=== PATIENT | male | born 1960 | race Caucasian/White ===

== ENCOUNTER 2020-07-26 14:20 | Emergency (ER) | payer MEDICARE, SELFPAY ==
[2020-07-26 14:41] VITALS: BP 146/72; PULSE 79; RESP 16; TEMP 36.8; O2SAT 96; BMI 33.7
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
[2020-07-26] MEDS: Lidocaine HCl 2 % MPF 5 ML VIAL INFILTRATI ×2 (17:02)
--- NOTE | 2020-07-26 17:04 | PC.NURSE ---
TETANUS VACCINE ADMINISTERED IN TO RT DELTOID
== END 2020-07-26 18:17 | disposition home or self-care (01) ==
PROVIDERS: Emergency Provider Emergency Medicine
DX: S01.01XA Laceration without foreign body of scalp, initial encounter (principal); S09.90XA Unspecified injury of head, initial encounter; S40.012A Contusion of left shoulder, initial encounter; Y00.XXXA Assault by blunt object, initial encounter; Y93.9 Activity, unspecified; Y92.9 Unspecified place or not applicable; Y99.9 Unspecified external cause status
CPT/HCPCS: 12002; 70450; 72125; 73030; 90471; 90715; 99284

== ENCOUNTER 2020-08-05 11:11 | Emergency (ER) | payer MEDICARE, SELFPAY ==
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
[2020-08-05 11:26] VITALS: BP 142/85; PULSE 84; RESP 14; TEMP 36.6; O2SAT 99; BMI 31.6
== END 2020-08-05 11:56 | disposition home or self-care (01) ==
PROVIDERS: Emergency Provider Emergency Medicine
DX: Z48.02 Encounter for removal of sutures (principal); Z79.899 Other long term (current) drug therapy
CPT/HCPCS: 99283

== ENCOUNTER 2020-12-01 08:12 | Outpatient (REF) | payer MEDICARE, SELFPAY ==
--- NOTE | ~2020-12-01 | XR_ITS ---
EXAMINATION: XR LUMBOSACRAL SPINE CLINICAL INFORMATION: Lower back pain COMPARISON: None TECHNIQUE: Three views of the lumbosacral spine. FINDINGS: There is grade 1/2 anterolisthesis of L5 on S1. Alignment is otherwise maintained. Vertebral body heights are maintained. Mild disc space narrowing of L4-L5 and L5-S1. Small multilevel endplate osteophytes with multilevel facet arthropathy. The sacroiliac joints are symmetric. The visualized sacrum is intact. The bowel gas pattern is unremarkable. XR/XR lumbar spine 2-3V IMPRESSION: Mild to moderate degenerative changes of the lumbar spine. Grade 1/2 anterolisthesis of L5 on S1.
--- NOTE | ~2020-12-01 | XR_ITS ---
EXAMINATION: XR CHEST CLINICAL INFORMATION: Left shoulder pain COMPARISON: 01/14/2018 TECHNIQUE: 2 views of the chest were obtained. FINDINGS: Lung volumes are low. No consolidation, edema, or effusion. No pneumothorax. The cardiomediastinal silhouette is within normal limits. No osseous abnormality. XR/XR chest 2V IMPRESSION: Low lung volumes with no acute pulmonary finding.
[2020-12-01 09:41] LABS: MANUAL DIFF FLAG NO
[2020-12-01 09:59] LABS: Basophils Absolute Auto 0.1 X10*3/uL (0.0-0.2); Basophils Percent Auto 0.9 % (0-2); Eosinophils Absolute Auto 0.2 X10*3/uL (0.0-0.4); Eosinophils Percent Auto 3.4 % (0-4); Hematocrit 45.7 % (42-52); Hemoglobin 14.5 g/dl (14.0-18.0); Imm Gran Abs Auto 0.02 X10*3/uL (0.00-0.03); Imm Gran Pct Auto 0.3 % (0.0-0.4); Mean Corpuscular HGB Conc 31.7 g/dl (31.0-36.0); Mean Corpuscular Hemoglobin 29.8 pg (27.0-33.0); Mean Platelet Volume 9.3 fL (9.4-12.4); Monocytes Absolute Auto 0.5 X10*3/uL (0.1-1.2); Monocytes Percent Auto 8.2 % (2-11); Neutrophils Absolute Auto 3.5 X10*3/uL (2.0-8.3); Neutrophils Percent Auto 55.2 % (45-73); Platelet Count 278 X10*3/uL (160-400); Red Blood Count 4.86 X10*6/uL (4.60-5.80); Red Cell Distribution Width 13.2 % (11.0-16.0); White Blood Count 6.4 X10*3/uL (4.8-10.8)
[2020-12-01 10:11] LABS: Alanine Aminotransferase 32 U/L (0-40); Albumin Level 4.4 g/dL (3.5-5.0); Alkaline Phosphatase 62 U/L (39-117); Anion Gap 11 (12-20); Aspartate Amino Transferase 25 U/L (5-37); Bilirubin Total 0.4 mg/dL (0.0-1.0); Blood Urea Nitrogen 12 mg/dL (9-16); Calcium 9.1 mg/dL (8.4-10.2); Carbon Dioxide 30 mmol/L (22-29); Chloride 103 mmol/L (96-108); Cholesterol 199 mg/dL; Estimated Glomerular Filt Rate > 60; Glucose Random 91 mg/dL (60-115); HDL Cholesterol 48 mg/dL; LDL Cholesterol Calculated 126 mg/dl; Potassium 4.3 mmol/L (3.3-5.1); Sodium 140 mmol/L (135-145); Total Protein 7.4 g/dL (6.5-8.0); Triglycerides 126 mg/dL
[2020-12-01 10:26] LABS: Prostate Specific Antigen Scr 0.24 ng/mL (<0.05-4.0); Thyroid Stimulating Hormone 1.35 uIU/mL (0.32-4.0)
[2020-12-01 10:57] LABS: Folate 9.9 ng/mL (> or = 4.0); Vitamin B12 307 pg/mL (200-900)
== END 2020-12-01 08:13 | disposition home or self-care (01) ==
LOC: HO.LAB 08:12
PROVIDERS: PCP Internal Medicine; Visit Provider Internal Medicine
DX: M54.5 Low back pain (principal); G89.29 Other chronic pain; M25.512 Pain in left shoulder; E78.00 Pure hypercholesterolemia, unspecified; Y09 Assault by unspecified means
CPT/HCPCS: 36415; 71046; 72100; 80053; 80061; 82607; 82746; 84153; 84439; 84443; 85025

== ENCOUNTER → 2020-12-13 13:04 | Outpatient (BNVA) | payer MEDICARE, SELFPAY | PROVIDERS: PCP Internal Medicine; Visit Provider Physician Assistant | DX: M75.42 Impingement syndrome of left shoulder (principal) | CPT/HCPCS: 20605; 99202; J1040 ==

== ENCOUNTER 2021-01-31 09:00 | Outpatient (RCR) | payer MEDICARE, SELFPAY ==
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
--- NOTE | 2021-02-10 11:30 | MHC.PT.DC ---
[facility] [place] Office [place] Office [place] Office [address] Nayeli Kennedy [address] [phone] F: [phone] F: [phone] F: [phone] F: [phone] Physical Therapy Discharge Report Diagnosis: Impingement syndrome of L shoulder Date of Surgery: NA Date of Evaluation: 12/27/20 Date of Discharge: 02/10/21 Treatments to Date: 6 Cancellations to Date: 1 No Shows to Date: 5 Discharge Status: Improved Function Independent with HEP Discharge Summary: David completed 6 PT visits. During his course of PT he made improvements in shoulder ROM, strength and pain levels however still had the crunchy sound and would occasionally have shoulder stuck while moving it. David wanted to follow up with his doctor and have more imaging done before doing any more PT. He has therefore been discharged from PT. Electronically signed by: Liz Rodriguez PT DPT Please sign and return to therapist. Thank you for your referral.
--- NOTE | 2021-02-10 11:41 | MHC.PT.DC ---
[facility] [place] Office [place] Office [place] Office [address] Nayeli Kennedy [address] [phone] F: [phone] F: [phone] F: [phone] F: [phone] Physical Therapy Discharge Report Diagnosis: Impingement syndrome of L shoulder Date of Surgery: NA Date of Evaluation: 12/27/20 Date of Discharge: 02/10/21 Treatments to Date: 6 Cancellations to Date: 1 No Shows to Date: 5 Discharge Status: Improved Function Independent with HEP Discharge Summary: David completed 6 PT visits. During his course of PT he made improvements in shoulder ROM, strength and pain levels however still had the crunchy sound and would occasionally have shoulder stuck while moving it. David wanted to follow up with his doctor and have more imaging done before doing any more PT. He has therefore been discharged from PT. Electronically signed by: Liz Rodriguez PT DPT Please sign and return to therapist. Thank you for your referral.
== END 2021-02-10 11:31 | disposition other institution (70) ==
LOC: HO.PT 09:00
PROVIDERS: PCP Internal Medicine; Visit Provider Physician Assistant
DX: M75.42 Impingement syndrome of left shoulder (principal)
CPT/HCPCS: 97110; 97112; 97140; 97161

== ENCOUNTER → 2021-02-15 12:32 | Outpatient (BNVA) | payer MEDICARE, SELFPAY | PROVIDERS: PCP Internal Medicine; Referring Provider Internal Medicine; Visit Provider Physician Assistant | DX: D12.6 Benign neoplasm of colon, unspecified (principal); K21.9 Gastro-esophageal reflux disease without esophagitis; E78.00 Pure hypercholesterolemia, unspecified; M47.817 Spondylosis without myelopathy or radiculopathy, lumbosacral region; Z79.899 Other long term (current) drug therapy | CPT/HCPCS: 99202 ==

== ENCOUNTER 2021-03-06 08:22 | Outpatient (REF) | payer MEDICARE, SELFPAY ==
[2021-03-11 10:27] LABS: Testosterone, Total 286 ng/dL (250-1100)
== END 2021-03-06 08:23 | disposition home or self-care (01) ==
LOC: HO.LAB 08:22
PROVIDERS: PCP Internal Medicine; Visit Provider Internal Medicine
DX: N52.9 Male erectile dysfunction, unspecified (principal)
CPT/HCPCS: 36415; 84403

== ENCOUNTER 2021-05-16 09:43 | Day surgery (SDC) | payer MEDICARE, SELFPAY ==
[2021-05-11 10:15] VITALS: BMI 36.0
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
[2021-05-16 10:38] VITALS: BP 148/77; PULSE 70; RESP 20; TEMP 36.3; O2SAT 98
[2021-05-16] MEDS: Lactated Ringers 1,000 ML 100 ML IVCONT (10:42)
--- NOTE | 2021-05-16 10:53 | MHC.SHP ---
Pre-Procedural Eval Section A Date of Service: 05/16/21 The patient is an INPATIENT: No The History & Physical has been completed within 30 days and I have reviewed it.: No Section B Chief Complaint: tubular adenoma of colon, GERD Relevant Family History (Specify if Yes): No Relevant Social History: None Present Medications: see Short Stay Collaborative assessment Medical History: Significant History (Chronic back pain Hypercholesterolemia Insomnia Spondylosis without myelopathy or radiculopathy, lumbosacral region) History of Previous Operations: Relevant previous surgery/procedure and date(s) (hx oc colonoscopy) Allergies: Allergies Allergy/AdvReac Type Severity Reaction Status Date / Time No Known Allergies Allergy Verified 05/16/21 10:36 Review of Systems Sugical H&P ROS: Negative: Constitution, Cardiovascular and Respiratory and Yes, Specify: Gastrointestinal (abdominal pain) Exam Surgical H&P Exam: Normal: Heart, Normal: Lungs, Normal: Extremities and Normal: Abdomen Plan Diagnosis/Plan: Unchanged I have reviewed the history and physical and performed a pertinent physical examination on my patient. No changes have occurred unless specified.
--- NOTE | 2021-05-16 10:55 | P.BOP_ITS ---
Brief Operative Note Date of Service: 05/16/21 Pre-op diagnosis: Colon cancer screening, history of colon polyps change in stool pattern- seems to be softer- several times a day, epigastic burning/ pain- ,for several months- no known relieving or exacerbating factor- Post-op diagnosis: other (Gastritis, colon polyps, diverticulosis, hemorrhoids) Procedure: FLEXIBLE TRANSORAL UPPER GASTROINTESTINAL ENDOSCOPY WITH BIOPSIES AND COLONOSCOPY TILL CECUM WITH BIOPSIES AND SNARE POLYPECTOMY UPPER ENDOSCOPY Consent: Indications for the procedure and potential complications of bleeding, perforation, reaction to medications and missed diagnosis were discussed with the patient and informed consent was obtained. Instrument: Olympus GIF H 190 mid size upper endoscope Monitoring: Vital signs and clinical assessment, continuous EKG monitoring, Pulse oximetry, Carbon Dioxide monitoring and blood pressure monitoring were done throughout the procedure. Procedure: The patient was placed in the left lateral decubitis position and pre-procedure medications were administered and a bite block was placed. The endoscope was inserted into the mouth and advanced under direct vision to the third part of duodenum. A careful inspection was made as the upper endoscope was withdrawn including a retroflexed examination of the proximal stomach; Findings and interventions are described below. Findings: Larynx: Normal Esophagus: GE junction at 38 cms. No esophagitis or Triplett's. Stomach: Moderate diffuse gastric erythema. Biopsies were obtained from the antrum and body of the stomach. Decreased fundal folds and Grade 2 flap valve on retroflexed examination of the cardia. Duodenum: Normal bulb and descending duodenum. Biopsies were obtained from 3rd part of duodenum to check for celiac sprue. Intervention: Biopsies as noted above COLONOSCOPY PROCEDURE NOTE Consent: Indications for the procedure and potential complications of bleeding, perforation, reaction to medications and missed diagnosis were discussed with the patient and informed consent was obtained. Instrument: Olympus PCF H 190 L variable stiffness pediatric colonoscope Monitoring: Vital signs and clinical assessment, intermittent blood pressure monitoring, continuous EKG monitoring, Pulse oximetry and Carbon Dioxide monitoring were done throughout the procedure. Colon withdrawl time was 30 minutes. Procedure: The patient was placed in the left lateral decubitis position and pre-procedure medications were administered. After a digital rectal examination of the ano-rectum, the video colonoscope was inserted into the rectum and advanced through the colon to the cecum. The colonoscope was slowly withdrawn in a retrograde panoramic fashion and the colon mucosa was carefully examined including a retroflexed view of the rectum. Findings and interventions are described below. Procedure Difficulty: : Without difficulty Findings: Terminal Ileum: Not evaluated Cecum: Normal Ascending Colon: Normal Transverse Colon: A 3-4 mm sessile polyp removed with the cold biopsy. Two 8-10 mm sessile polyps removed with the cold snare Descending Colon: Moderate diverticulosis Sigmoid Colon: Moderate diverticulosis Rectum: A 2-3 mm sessile polyp removed with a cold bx. An 8-10 mm sessile polyp removed with a cold snare. Ano-rectum: Moderate internal hemorrhoids Colon preparation: Good after some irrigation Impression and Post Procedure Diagnosis: Endoscopy Findings: STOMACH: Moderate diffuse gastric erythema. Biopsies were obtained from the antrum and body of the stomach. Decreased fundal folds and Grade 2 flap valve on retroflexed examination of the cardia. DUODENUM: Normal - biopsied to check for celiac sprue. Colonoscopy Findings: Five small to medium sized polyps removed Moderate diverticulosis seen in the left colon Moderate hemorrhoids on retroflexed exam. Plan: Await pathology results Patient has an appointment on 05/31/21 in the GI Clinic with PATRICIA Lowry. Repeat Colonoscopy interval based on path results - in 3-5 years if polyps are adenomatous and 10 years if polyps are hyperplastic. Handouts on Gastritis, colon polyps and diverticulosis were given in the discharge area Surgeon: Gemini Angulo MD Anesthesia: MAC (Kary Tran CRNA) Was an Mechanical Design Drafter used for this Procedure?: No Mechanical Design Drafter: Natasha Mena Estimated blood loss (mL): 0 Pathology: other (A. small bowel, R/O Celiac B. gastric antrum, R/O H. pylori C. gastric body D. transverse colon polyps E. Rectal Polyps) Condition: stable Disposition: PACU
--- NOTE | 2021-05-16 11:02 | W.PM.OPN ---
Operative Note Operative Note Date of Service: 05/16/21 Narrative: Pre-op diagnosis:?Colon cancer screening, history of colon polyps change in stool pattern- seems to be softer- several times a day, epigastic burning/ pain-,for several months- no known relieving or exacerbating factor- Post-op diagnosis:?other (Gastritis, colon polyps, diverticulosis, hemorrhoids) Procedure:? FLEXIBLE TRANSORAL UPPER GASTROINTESTINAL ENDOSCOPY WITH BIOPSIES AND COLONOSCOPY TILL CECUM WITH BIOPSIES AND SNARE POLYPECTOMY UPPER ENDOSCOPY Consent:?Indications for the procedure and potential complications of bleeding, perforation, reaction to medications and missed diagnosis were discussed with the patient and informed consent was obtained. Instrument:?Olympus GIF H 190 mid size upper endoscope Monitoring: Vital signs and clinical assessment, continuous EKG monitoring, Pulse oximetry, Carbon Dioxide monitoring and blood pressure monitoring were done throughout the procedure. Procedure:?The patient was placed in the left lateral decubitis position and pre-procedure medications were administered and a bite block was placed. The endoscope was inserted into the mouth and advanced under direct vision to the third part of duodenum. A careful inspection was made as the upper endoscope was withdrawn including a retroflexed examination of the proximal stomach; Findings and interventions are described below. Findings: Larynx:??Normal Esophagus:?GE junction at 38 cms.? No esophagitis or Triplett's. Stomach:?Moderate diffuse gastric erythema. Biopsies were obtained from the antrum and body of the stomach.? Decreased fundal folds and Grade 2 flap valve on retroflexed examination of the cardia. Duodenum:?Normal bulb and descending duodenum.? Biopsies were obtained from 3rd part of duodenum to check for celiac sprue. Intervention:?Biopsies as noted above COLONOSCOPY PROCEDURE NOTE Consent:?Indications for the procedure and potential complications of bleeding, perforation, reaction to medications and missed diagnosis were discussed with the patient and informed consent was obtained. Instrument:?Olympus PCF H 190 L variable stiffness pediatric colonoscope Monitoring:?Vital signs and clinical assessment, intermittent blood pressure monitoring, continuous EKG monitoring, Pulse oximetry and Carbon Dioxide monitoring were done throughout the procedure. Colon withdrawl time was 30? minutes. Procedure:?The patient was placed in the left lateral decubitis position and pre-procedure medications were administered. After a digital rectal examination of the ano-rectum, the video colonoscope was inserted into the rectum and advanced through the colon to the cecum. The colonoscope was slowly withdrawn in a retrograde panoramic fashion and the colon mucosa was carefully examined including a retroflexed view of the rectum. Findings and interventions are described below. Procedure Difficulty:?: Without difficulty Findings: Terminal Ileum: Not evaluated Cecum:? Normal Ascending Colon:??Normal Transverse Colon:??A 3-4 mm sessile polyp removed with the cold biopsy. Two 8-10 mm sessile polyps removed with the cold snare Descending Colon:? Moderate diverticulosis Sigmoid Colon:??Moderate diverticulosis Rectum:??A 2-3 mm sessile polyp removed with a cold bx.? An 8-10 mm sessile polyp removed with a cold snare. Ano-rectum:??Moderate internal hemorrhoids Colon preparation:? Good after some irrigation Impression and Post Procedure Diagnosis: Endoscopy Findings: STOMACH: Moderate diffuse gastric erythema. Biopsies were obtained from the antrum and body of the stomach.? Decreased fundal folds and Grade 2 flap valve on retroflexed examination of the cardia. DUODENUM: Normal - biopsied to check for celiac sprue. Colonoscopy Findings: Five small to medium sized polyps removed Moderate diverticulosis seen in the left colon Moderate hemorrhoids on retroflexed exam. Plan: Await pathology results Patient has an appointment on 05/31/21 in the GI Clinic with PATRICIA Lowry. Repeat Colonoscopy interval based on path results - in 3-5 years if polyps are adenomatous and 10 years if polyps are hyperplastic. Handouts on Gastritis, colon polyps and diverticulosis were given in the discharge area Surgeon:?Gemini Angulo MD Anesthesia:?MAC (Kary Tran CRNA) Was an Foundry Equipment Mechanic used for this Procedure?:?No Foundry Equipment Mechanic:?Natasha Mena Estimated blood loss (mL):?0 Pathology:?other (A. small bowel, R/O Celiac? B. gastric antrum, R/O H. pylori? C. gastric body? D. transverse colon polyps? E. Rectal Polyps) Condition:?stable Disposition:?PACU
[2021-05-16 12:06] VITALS: BP 128/88; PULSE 72; RESP 17; TEMP 37; O2SAT 97
[2021-05-16 12:21] VITALS: BP 126/96; PULSE 72; RESP 18; TEMP 36.1; O2SAT 98
--- NOTE | 2021-05-16 12:28 | PC.NURSE ---
iv d/theresa +flatus awaiting d/c
== END 2021-05-16 12:55 | disposition home or self-care (01) ==
PROVIDERS: PCP Internal Medicine; Visit Provider Internal Medicine Gastroenterology
PROC: (CPT 45385; principal; 2021-05-16 10:40)
DX: Z12.11 Encounter for screening for malignant neoplasm of colon (principal); D12.3 Benign neoplasm of transverse colon; D12.8 Benign neoplasm of rectum; K57.30 Diverticulosis of large intestine without perforation or abscess without bleeding; K64.8 Other hemorrhoids; Z86.010 Personal history of colon polyps; K21.9 Gastro-esophageal reflux disease without esophagitis; K29.70 Gastritis, unspecified, without bleeding; B96.81 Helicobacter pylori [H. pylori] as the cause of diseases classified elsewhere
CPT/HCPCS: 45385; 45380; 43239; 88305; 88342

== ENCOUNTER 2022-07-17 07:40 | Outpatient (REF) | payer MEDICARE, SELFPAY ==
[2022-07-17 08:58] LABS: Anion Gap 12 (12-20); Blood Urea Nitrogen 12 mg/dL (9-16); Calcium 9.6 mg/dL (8.4-10.2); Carbon Dioxide 28 mmol/L (22-29); Chloride 105 mmol/L (96-108); Estimated Glomerular Filt Rate > 60; Glucose Fasting 106 mg/dL (60-99); Potassium 5.2 mmol/L (3.3-5.1); Prostate Specific Antigen 0.33 ng/mL (<0.05-4.0); Sodium 140 mmol/L (135-145)
== END 2022-07-17 07:41 | disposition home or self-care (01) ==
LOC: HO.LAB 07:40
PROVIDERS: PCP Internal Medicine; Visit Provider Nurse Practitioner Family
DX: Z12.5 Encounter for screening for malignant neoplasm of prostate (principal); Z13.1 Encounter for screening for diabetes mellitus
CPT/HCPCS: 36415; 80048; 84153

== ENCOUNTER 2022-07-25 08:13 | Outpatient (REF) | payer MEDICARE, SELFPAY ==
[2022-07-25 09:04] LABS: Anion Gap 14 (12-20); Blood Urea Nitrogen 12 mg/dL (9-16); Calcium 9.5 mg/dL (8.4-10.2); Carbon Dioxide 24 mmol/L (22-29); Chloride 105 mmol/L (96-108); Estimated Glomerular Filt Rate > 60; Glucose Random 103 mg/dL (60-115); Sodium 139 mmol/L (135-145)
[2022-07-25 09:25] LABS: Estimated Average Glucose 108 mg/dL; Hemoglobin A1c % 5.4 %
== END 2022-07-25 08:14 | disposition home or self-care (01) ==
LOC: HO.LAB 08:13
PROVIDERS: PCP Internal Medicine; Visit Provider Nurse Practitioner Family
DX: R73.01 Impaired fasting glucose (principal); E87.5 Hyperkalemia
CPT/HCPCS: 36415; 80048; 83036

== ENCOUNTER 2022-11-26 08:19 | Outpatient (REF) | payer MEDICARE, SELFPAY ==
--- NOTE | ~2022-11-26 | US_ITS ---
EXAMINATION: US RETROPERITONEAL LIMITED (RENAL ONLY) CLINICAL INFORMATION: Cyst of kidney, acquired. COMPARISON: None available. TECHNIQUE: Real-time imaging of the kidneys. FINDINGS: RIGHT KIDNEY: 11.9 x 6.7 x 5.6 cm (SAG x AP x TRV). The kidney is normal in size, contour, and echogenicity. Renal cortical thickness is normal. No renal calculi or hydronephrosis. There is a 9 x 8 x 8 mm cyst in the midpole with a focus of wall calcification or milk of calcium cyst. LEFT KIDNEY: 10.4 x 5.7 x 5.3 cm (SAG x AP x TRV). The kidney is normal in size, contour, and echogenicity. Renal cortical thickness is normal. No renal calculi or hydronephrosis. There is a 3.1 x 3.2 cm simple cyst exophytic to the lateral midpole. There is a 1.4 cm simple cyst exophytic to the medial midpole. US/US renal BI IMPRESSION: Small bilateral renal cysts. No imaging follow-up recommended.
== END 2022-11-26 08:20 | disposition home or self-care (01) ==
LOC: HO.US 08:19
PROVIDERS: PCP Internal Medicine; Visit Provider Internal Medicine
DX: N28.1 Cyst of kidney, acquired (principal)
CPT/HCPCS: 76775

== ENCOUNTER 2023-04-25 09:52 | Outpatient (AMB) | payer MEDICARE, SELFPAY ==
[2023-04-25 09:56] VITALS: BP 138/72; PULSE 78; O2SAT 98; BMI 34.3
--- NOTE | 2023-04-25 09:56 | A.OFFPC_ITS ---
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 Machine Required: Yes Allergies No Known Allergies Allergy (Verified 04/25/23 09:57) Tobacco use date assessed: 10/19/22 Fall risk assessment: No Falls in past year Last assessed Fall Risk: 04/25/23 Dental Screening Dental Screen Date: 04/25/23 Did you have a dental visit in the last 12 months?: Yes Did you have a dental problem in the last 6 months where you did not have access to dental care?: No Was dental information given to patient?: Patient has dentist HPI 6mth f/u HPI Details 63-year-old obese male with hypercholesterolemia chronic low back pain left renal cyst coming in for follow-up September last seen colonoscopy is up-to-date. Patient's last complete blood work was done in June 2022 patient has impaired glucose tolerance but A1c is normal. Ultrasound of the kidney shows renal cysts . No further follow-up needed patient mentions cyst on the right lower back that has gotten infected and had discharge but he has expressed out the liquid and now has healed good. Discussed with the patient that if it persists to let me know as we will have to get the surgeon to take it out as this has happened multiple times. Also noted on the right lateral leg erythema toes rash that has been itchy and has not gotten any better. This is about 5 x 3 cm area [facility] Medical History (Updated 04/25/23 @ 10:45 by Patricio Keane MD) Chronic back pain GERD (gastroesophageal reflux disease) Hypercholesterolemia Insomnia Lumbar degenerative disc disease Screening for diabetes mellitus Screening for prostate cancer Spondylosis without myelopathy or radiculopathy, lumbosacral region Surgical History (Updated 07/03/22 @ 11:54 by ASHA Mccabe) H/O colonoscopy Family History Unknown No family history of colorectal cancer Social History Household Members: Significant Other Household Members Other:: Girl friend-older children Housing: Apartment Alcohol intake: never Patient Tobacco Use Status: Never used Tobacco e-Cigarette/Vaping Use: Never Used Second Hand Smoke Exposure: No service: No Current occupational status: disabled Cognitive needs: No Hearing needs: No Vision needs: No Questionnaire PHQ-9 Over the last 2 weeks, how often have you been bothered by any of the following problems? 1. Little interest or pleasure in doing things: not at all 2. Feeling down, depressed, or hopeless: not at all 3. Trouble falling or staying asleep, or sleeping too much: nearly every day 4. Feeling tired or having little energy: nearly every day 5. Poor appetite or overeating: several days 6. Feeling bad about yourself - or that you are a failure or have let yourself or your family down: not at all 7. Trouble concentrating on things, such as reading the newspaper or watching television: nearly every day 8. Moving or speaking so slowly that other people could have noticed. Or the opposite - being so fidgety or restless that you have been moving around a lot more than usual: not at all 9. Thoughts that you would be better off or of hurting yourself in some way: not at all Total score: 10 Depression Screening Interpretation: Negative Source: Developed by Drs. Matt Diana, Nicola Díaz and colleagues, with an educational annita from [employer]. Thrive Questionnaire Date Thrive assessed: 10/19/22 AUDIT C Alcohol Use Questionnaire (AUDIT-C) 1. How often do you have a drink containing alcohol?: Never 3. How often do you have six or more drinks on one occasion?: Never Total Score: 0 Score Reviewed/Action Taken: No ADDIS-7 AMB Questionnaire ADDIS-7 Date ADDIS - 7 assessed: 10/19/22 Source: Developed by Kati Duncan Kurt Kroenke and colleagues, with an educational annita from [employer]. Physical exam (Primary Care) Vital Signs: Last Vital Signs Pulse 78 04/25/23 09:56 BP 138/72 04/25/23 09:56 Pulse Ox 98 04/25/23 09:56 Oxygen Delivery Method Room Air 04/25/23 09:56 Care Plan Goal for BP management: Right lower back noted to have scar with a slight mario 1 cm on the skin but no redness, right leg 5 x 4 cm erythematous papular rash no discharge no scaliness BMI result Body Mass Index 34.3 Tobacco/Smoking Status: Tobacco use Status Tobacco use date assessed 10/19/22 04/25/23 09:58 Patient Tobacco Use Status Never used Tobacco 04/25/23 09:58 e-Cigarette/Vaping Use Never Used 04/25/23 09:58 PHQ-9: PHQ-9 Score PHQ-9: Total score 10 04/25/23 10:36 Depression Screening Interpretation: Negative Thrive Assessment: Date of Thrive Assessment Date Thrive assessed 10/19/22 04/25/23 09:58 Const General: alert; No acute distress Eyes Conjunctivae: conjunctivae normal Resp Auscultation: clear to auscultation bilaterally Cardio Rate: regular rate Rhythm: regular rhythm GI Inspection: Yes normal to inspection Extrem General: Yes normal to inspection and No edema Immunizations pneumoc 20-zhanna conj-dip cr(PF) Performing Provider: Patricio Keane MD Administered by: Pinky Dietz CMA on 04/25/23 10:50 Dose Route Admin Location Lot Number Expiration Date [employer] 0.5 mL IM Left Deltoid [id number] 05/26/24 8132-9228-84 [employer] VIS Given Date VIS Provided VIS Publication Date 04/25/23 Single Vaccine 21 Eligibility Eligibility Date Funding Source Not [facility] Eligible 04/25/23 Private Assessment and Plan Assessment & Plan (1) Impaired glucose tolerance: Code(s): R73.02 - Impaired glucose tolerance (oral) Plan: Decrease the amount of carbohydrate intake, pasta, bread, rice and potatoes are all sugar and that is aside from all the sweet stuff, remember that fruits are good but they are Sweet also. (2) Obesity (BMI 30-39.9): Code(s): E66.9 - Obesity, unspecified Plan: Diet and exercise (3) Chronic low back pain: Comment: work injury [address] Peraza05/08/2021 5 mm anterolisthesis of L5 over S1 and multilevel degenerative disc and facet disease as described mild central canal stenosis at L4-5 and lateral recess neuroforaminal narrowing, exophytic cyst left kidney Code(s): M54.5 - Low back pain; G89.29 - Other chronic pain Plan: Lose the weight and keep active (4) Hypercholesterolemia: Code(s): E78.00 - Pure hypercholesterolemia, unspecified Plan: Avoid fried foods, chicken skin, eggs, butter margarine, pastries and meat. Be it pork or beef they have a lot of cholesterol LDL goal of less than 130 and triglyceride of less than 150 (5) Eczema: Comment: R leg 03/2023 Code(s): L30.9 - Dermatitis, unspecified Plan: Right leg rash steroid cream advised for 1-2 weeks and aggressive lotion the place every day if persist will get dermatology Orders: Orders Comprehensive Met. Panel Today R73.02 - Impaired glucose tolerance (oral) Hemoglobin A1c Today R73.02 - Impaired glucose tolerance (oral) Complete Blood Count Auto Diff Today R73.02 - Impaired glucose tolerance (oral) Lipid Panel Today E78.00 - Pure hypercholesterolemia, unspecified, R73.02 - Impaired glucose tolerance (oral) Thyroid Stimulating Hormone Today R73.02 - Impaired glucose tolerance (oral) Free T4 (Free Thyroxine) Today R73.02 - Impaired glucose tolerance (oral) Vitamin B12 and Folate Today R73.02 - Impaired glucose tolerance (oral) Prostate Specific Antigen Scr Today R73.02 - Impaired glucose tolerance (oral) Pneumococcal 20 Immunization Today Z23 - Encounter for immunization Medications: New triamcinolone acetonide 0.5% 1 appl topical BID 45 grams 0RF L30.9 - Dermatitis, unspecified Coding Level of Care Code Est Pt Level 4 (24505) Diagnoses Impaired glucose tolerance R73.02 Obesity (BMI 30-39.9) E66.9 Chronic low back pain M54.5; G89.29 Hypercholesterolemia E78.00 Eczema L30.9 Additional Codes PHQ-9 - 61509 - PHQ-9 Billing: Y ([id number])
== END 2023-04-25 11:03 | disposition home or self-care (01) ==
PROVIDERS: PCP Internal Medicine; Visit Provider Internal Medicine
DX: R73.02 Impaired glucose tolerance (oral) (principal); E66.9 Obesity, unspecified; M54.50 Low back pain, unspecified; Z68.34 Body mass index [BMI] 34.0-34.9, adult; Z23 Encounter for immunization; E78.00 Pure hypercholesterolemia, unspecified; L30.9 Dermatitis, unspecified
CPT/HCPCS: 90471; 90677; 99214

== ENCOUNTER 2023-07-25 08:02 | Outpatient (REF) | payer MEDICARE, SELFPAY ==
[2023-07-25 08:33] LABS: MANUAL DIFF FLAG NO
[2023-07-25 09:11] LABS: Basophils Absolute Auto 0.1 X10*3/uL (0.0-0.2); Basophils Percent Auto 1.1 % (0-2); Eosinophils Absolute Auto 0.2 X10*3/uL (0.0-0.4); Eosinophils Percent Auto 3.5 % (0-4); Hematocrit 47.2 % (42.0-52.0); Hemoglobin 15.6 g/dl (14.0-18.0); Imm Gran Abs Auto 0.02 X10*3/uL (0.00-0.03); Imm Gran Pct Auto 0.3 % (0.0-0.4); Lymphocytes Absolute Auto 2.2 X10*3/uL (1.2-4.9); Lymphocytes Percent Auto 33.9 % (20-40); Mean Corpuscular HGB Conc 33.1 g/dl (31.0-36.0); Mean Corpuscular Hemoglobin 30.3 pg (27.0-33.0); Mean Corpuscular Volume 91.7 fL (80.0-98.0); Mean Platelet Volume 9.3 fL (9.4-12.4); Monocytes Absolute Auto 0.6 X10*3/uL (0.1-1.2); Monocytes Percent Auto 9.1 % (2-11); Neutrophils Absolute Auto 3.4 x10*3/uL (2.0-8.3); Neutrophils Percent Auto 52.1 % (45-73); Platelet Count 255 X10*3/uL (160-400); Red Blood Count 5.15 X10*6/uL (4.60-5.80); Red Cell Distribution Width 13.3 % (11.0-16.0); White Blood Count 6.5 X10*3/uL (4.8-10.8)
[2023-07-25 09:13] LABS: Estimated Average Glucose 108 mg/dL; Hemoglobin A1c % 5.4 % (<6.0)
[2023-07-25 09:40] LABS: Alanine Aminotransferase 28 U/L (0-40); Albumin Level 4.3 g/dL (3.5-5.0); Alkaline Phosphatase 56 U/L (39-117); Anion Gap 11 (12-20); Aspartate Amino Transferase 25 U/L (5-37); Bilirubin Total 0.4 mg/dL (0.0-1.0); Blood Urea Nitrogen 13 mg/dL (9-16); Calcium 9.6 mg/dL (8.4-10.2); Carbon Dioxide 27 mmol/L (22-29); Chloride 105 mmol/L (96-108); Cholesterol 198 mg/dL (<200); Estimated Glomerular Filt Rate > 60; Glucose Random 100 mg/dL (60-115); HDL Cholesterol 46 mg/dL (>40); LDL Cholesterol Calculated 138 mg/dL (<100); Potassium 4.2 mmol/L (3.3-5.1); Sodium 139 mmol/L (135-145); Total Protein 7.6 g/dL (6.5-8.0); Triglycerides 70 mg/dL (<150)
[2023-07-25 09:57] LABS: Prostate Specific Antigen Scr 0.38 ng/mL (<0.05-4.0); Vitamin B12 292 pg/mL (200-900)
[2023-07-25 10:00] LABS: Free T4 (Free Thyroxine) 0.95 ng/dL (0.71-1.85); Thyroid Stimulating Hormone 1.12 uIU/mL (0.32-4.0)
[2023-07-25 10:23] LABS: Folate 9.6 ng/mL (> or = 4.0)
== END 2023-07-25 08:03 | disposition home or self-care (01) ==
LOC: HO.LAB 08:02
PROVIDERS: PCP Internal Medicine; Visit Provider Internal Medicine
DX: Z12.5 Encounter for screening for malignant neoplasm of prostate (principal); R73.02 Impaired glucose tolerance (oral); E78.00 Pure hypercholesterolemia, unspecified
CPT/HCPCS: 36415; 80053; 80061; 82607; 82746; 83036; 84153; 84439; 84443; 85025

== ENCOUNTER 2023-08-01 11:06 | Outpatient (AMB) | payer MEDICARE, SELFPAY ==
[2023-08-01 11:14] VITALS: BP 142/80; PULSE 81; O2SAT 96; BMI 33.9
--- NOTE | 2023-08-01 11:16 | A.OFFVIS_ITS ---
Intake Vital Signs 08/01/23 11:14 08/01/23 11:21 Height 5 ft 10 in Weight 236 lb BMI 33.9 33.9 BP 142/80 H Blood Pressure Location Lt brachial Position Sitting Pulse 81 Pulse Source Pulse Oximeter Pulse Oximetry (%) 96 Oxygen Delivery Method Room Air Intake Visit Reasons: [facility] G0439 Taper Machine Required: No Allergies No Known Allergies Allergy (Verified 08/01/23 11:24) Medication List - Last Reconciled 08/01/23 by ASHA Mccabe triamcinolone acetonide 0.5% 1 appl topical BID HPI SWV G0439 HPI Details Patient is a 63-year-old male who presents today for subsequent wellness visit. Patient of Dr. Keane. Patient is up to date with health preventative screenings and immunizations. Colonoscopy 04/2021 with tubular adenoma was done by Dr. Angulo. [place] of care was reviewed with the patient and he was provided with a screening schedule. Patient has declined the end of life planning conversation at this visit. [facility] Medical History (Updated 08/01/23 @ 11:43 by ASHA Mccabe) Lump of skin H. pylori infection Screening for diabetes mellitus Screening for prostate cancer GERD (gastroesophageal reflux disease) Lumbar degenerative disc disease Insomnia Hypercholesterolemia Spondylosis without myelopathy or radiculopathy, lumbosacral region Chronic back pain Surgical History H/O colonoscopy Family History Unknown No family history of colorectal cancer Social History Household Members: Significant Other Household Members Other:: Girl friend-older children Housing: Apartment Alcohol intake: never Patient Tobacco Use Status: Never used Tobacco e-Cigarette/Vaping Use: Never Used Second Hand Smoke Exposure: No service: No Current occupational status: disabled Cognitive needs: No Hearing needs: No Vision needs: No Questionnaire Medicare Wellness Checkup What [age] your age?: 65-69 (63) What gender do you identify with?: male During the past 4 weeks, how much have you been bothered by emotional problems such as feeling anxious, depressed, irritable, sad or downhearted, and blue?: not at all During the past 4 weeks, has your physical & emotional health limited your social activities with family, friends, neighbors, or groups?: not at all During the past 4 weeks, how much bodily pain have you generally had?: moderate pain During the past 4 weeks, was someone available to help you if you needed & wanted help?: no, not at all During the past 4 weeks, what was the hardest physical activity you could do for at least 2 minutes?: light Can you get to places out of walking distance without help? (For eg., can you travel alone on buses, taxis or drive your car?): Yes Can you go shopping for groceries or clothes without someone's help?: No Can you prepare your own meals?: Yes Can you do your housework without help?: Yes Because of any health problems, do you need the help of another person with your personal care needs such as eating, bathing, dressing or getting around the house?: No Can you handle your own money without help?: Yes During the past 4 weeks, how would you rate your health in general?: fair During the past 4 weeks how have things been going for you?: good & bad parts about equal Are you having difficulties driving your car?: no Do you always fasten your seat belt when you are in a car?: yes, usually During past 4 weeks, have you been bothered by the following: never: Falling or dizzy when standing up, Sexual problems?, Trouble eating well?, Teeth or denture problems?, Problems using the telephone? and Tiredness or fatigue? Have you fallen 2 or more times in the past year?: No Are you afraid of falling?: Yes Are you a smoker?: no During the past 4 weeks, how many drinks of wine, beer, or other alcoholic beverages did you have?: no alcohol at all Do you exercise for about 20 minutes 3 or more times a week?: no, I usually do not exercise this much Have you been given information to help with the following?: no: Hazards in your house that might hurt you? and no: Keeping track of your medications? How often do you have trouble taking medicines the way you have been told to take them?: I always take medicine as prescribed How confident are you that you can control & manage most of your health problems?: very confident What is your race?: or origin or descent Mini Mental State Exam (MMSE) Orientation What is the (year) (season) (date) (day) (month)?: year, season, date, day and month Score Score: 5 Activity of Daily Living Bathing - sponge bath, tub bath or shower: receives no assistance (gets in/out by self, if usual bathing means Dressing - getting clothes from closets & drawers, including inner/outer garments & fasteners.: gets clothes & gets completely dressed without help Toileting - going to the 'toilet room' for urine/bowel elimination & cleaning self/arranging clothes: goes to toilet room, cleans self, arranges clothes without help Transfer: moves in & out of bed and chair without help (may use support object) Continence: controls urination/bowel movements completely by self Feeding: feeds self without help Total Score: 0 Information obtained from: patient Using telephone: independent Traveling: independent Shopping: needs assistance Preparing meals: independent Housework: independent Taking medicine: independent Managing money: independent PHQ-9 Over the last 2 weeks, how often have you been bothered by any of the following problems? 1. Little interest or pleasure in doing things: not at all 2. Feeling down, depressed, or hopeless: not at all 3. Trouble falling or staying asleep, or sleeping too much: several days 4. Feeling tired or having little energy: not at all 5. Poor appetite or overeating: not at all 6. Feeling bad about yourself - or that you are a failure or have let yourself or your family down: not at all 7. Trouble concentrating on things, such as reading the newspaper or watching television: not at all 8. Moving or speaking so slowly that other people could have noticed. Or the opposite - being so fidgety or restless that you have been moving around a lot more than usual: not at all 9. Thoughts that you would be better off or of hurting yourself in some way: not at all Total score: 1 Depression Screening Interpretation: Negative Depression Screening Done: Yes 85871 - PHQ-9 Billing: Yes Source: Developed by Drs. Matt Diana, Kati Wang, Nicola Benton and colleagues, with an educational annita from [employer]. Physical Exam Vital Signs: Last Vital Signs Pulse 81 08/01/23 11:14 BP 142/80 H 08/01/23 11:14 Pulse Ox 96 08/01/23 11:14 Oxygen Delivery Method Room Air 08/01/23 11:14 BMI result Body Mass Index 33.9 Const General: cooperative and no acute distress Orientation/consciousness: patient oriented x3 HEENT Other: Whisper test: pass Neuro Other: Balance: Normal Get up and walk: able to Romberg: negative Tandem gait: able to General: patient oriented x3 Office Procedures Flu Questionnaire Does the patient have a severe egg allergy?: No Does the patient have severe life threatening allergies?: No Does the patient have a fever or illness today?: No Has the patient ever had Guillain-[place] Syndrome?: No Has the patient ever had any past reaction to a flu shot?: No Immunizations flu vacc [id number] 6mos up(PF) 60 mcg(15 mcgx4)/0.5 mL IM syringe Performing Provider: ASHA Mccabe [facility] Administered by: ALVERTO Huff on 08/01/23 11:35 Dose Route Admin Location Dispensed Lot Number Expiration Date NDC Cooker Cleaner 0.5 mL IM Left Deltoid 0.5 mL [id number] 02/23/24 [id number] PAAY VIS Given Date VIS Provided VIS Publication Date 08/01/23 Single Vaccine 21 Eligibility Eligibility Date Funding Source Not [facility] Eligible 08/01/23 Private Assessment & Plan Assessment & Plan (1) Obesity (BMI 30-39.9): Code(s): E66.9 - Obesity, unspecified Plan: Healthy food choices and exercise as tolerated (2) Adult general medical exam: Code(s): Z00.00 - Encounter for general adult medical examination without abnormal findings Plan: Repeat in 1 year (3) Impaired glucose tolerance: Code(s): R73.02 - Impaired glucose tolerance (oral) Plan: A1c 5.4 06/2023 (4) Mild depression: Code(s): F32.0 - Major depressive disorder, single episode, mild Plan: Stable Not on treatment (5) Hypercholesterolemia: Code(s): E78.00 - Pure hypercholesterolemia, unspecified Plan: Encouraged low-cholesterol diet Orders: Orders Influenza [id number] Immunization Today Z23 - Encounter for immunization Quality Reporting (2020) Depression/Bipolar (159/160/161/177) PHQ-9: Total score: 1 Coding Level of Care Code Medicare Subsequent (G0439) Diagnoses Obesity (BMI 30-39.9) E66.9 Adult general medical exam Z00.00 Impaired glucose tolerance R73.02 Mild depression F32.0 Hypercholesterolemia E78.00 CPT Codes Advance Care Planning - Time spent: 1-15 minutes, not on file ([id number]) Advance Care Planning Advance Care Planning discussion: Declined forms Date of discussion: 08/01/23 Who was present: pt and money room teller Forms completed: None Time spent: 1-15 minutes, not on file Actual minutes spent: 1 Did not discuss due to Cultural/Spiritual beliefs: No
[2023-08-01 11:21] VITALS: BMI 33.9
== END 2023-08-01 11:43 | disposition home or self-care (01) ==
PROVIDERS: PCP Internal Medicine; Visit Provider Nurse Practitioner Family
DX: Z00.00 Encounter for general adult medical examination without abnormal findings (principal); E66.9 Obesity, unspecified; F32.0 Major depressive disorder, single episode, mild; Z23 Encounter for immunization; Z68.33 Body mass index [BMI] 33.0-33.9, adult; R73.02 Impaired glucose tolerance (oral); E78.00 Pure hypercholesterolemia, unspecified
CPT/HCPCS: 1124F; 90471; 90686; G0439

== ENCOUNTER 2023-08-23 09:40 | Outpatient (AMB) | payer MEDICARE, SELFPAY ==
[2023-08-23 09:46] VITALS: BP 130/84; PULSE 94; O2SAT 95; BMI 33.7
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
== END 2023-08-23 10:14 | disposition home or self-care (01) ==
PROVIDERS: PCP Internal Medicine; Visit Provider Internal Medicine
DX: R73.02 Impaired glucose tolerance (oral) (principal); E78.00 Pure hypercholesterolemia, unspecified; E66.9 Obesity, unspecified; Z68.33 Body mass index [BMI] 33.0-33.9, adult
CPT/HCPCS: 99214